=== PATIENT | male | born 1990 | race Caucasian/White ===

== ENCOUNTER 2017-10-26 00:55 | Emergency (ER) | payer BC, OTHER ==
[~2017-10-26] VITALS: Ht 175.3 cm; Wt 99.8 kg
[2017-10-26 01:12] VITALS: BP 100/68
[2017-10-26] MEDS: ALBUTEROL FS 2.5 MG/0.5 ML VIAL.NEB NEB ONE (01:19)
[2017-10-26] MEDS ORDERED: ALBUTEROL FS 2.5 MG/3 ML VIAL.NEB ONE (01:21)
== END 2017-10-26 02:46 | disposition home or self-care (01) ==
LOC: ER 00:56
DX: J18.9 Pneumonia, unspecified organism (principal); Z71.6 Tobacco abuse counseling; Z60.2 Problems related to living alone
CPT/HCPCS: 71045-TC; A4606; Z7610